=== PATIENT | male | born 1990 | race Caucasian/White ===

== ENCOUNTER 2018-04-05 21:57 | Emergency (ER) | payer SELFPAY ==
[~2018-04-05] VITALS: Ht 172.7 cm; Wt 75.0 kg
[2018-04-06] MEDS ORDERED: BACITRACIN ZINC OINT UDPKT TOP ONE (03:00)
[2018-04-06] MEDS ORDERED: ACETAMINOPHEN 325MG TABLET PO ONE (03:00)
[2018-04-06] MEDS ORDERED: LIDOCAINE HCL 1% 20ML VIAL (Pyxis) INJ MC ONE (03:00)
[2018-04-06] MEDS ORDERED: TETANUS, DIPHTHERIA, PERTUSSIS VAC/PF 0.5ML (>7YR OLD) IM ONE (03:00)
[2018-04-06 04:28] VITALS: BP 122/70
== END 2018-04-06 05:17 | disposition home or self-care (01) ==
LOC: ER 21:57
DX: S01.01XA Laceration without foreign body of scalp, initial encounter (principal); S20.20XA Contusion of thorax, unspecified, initial encounter; F17.200 Nicotine dependence, unspecified, uncomplicated; Y04.0XXA Assault by unarmed brawl or fight, initial encounter; Y93.89 Activity, other specified; Y92.89 Other specified places as the place of occurrence of the external cause
CPT/HCPCS: 12002; 70450; 71111; 90471; 90715; 99284; J3490; Z7610